=== PATIENT | female | born 1995 | race Caucasian/White ===

== ENCOUNTER 2022-05-29 14:02 | Outpatient (CLI) | payer OTHER, SELFPAY ==
[2022-05-29 21:46] LABS: Chloride* 102 mmol/L (96-114); Sodium* 139 mmol/L (135-149)
[2022-05-29 21:49] LABS: Blood Urea Nitrogen* 18 mg/dL (5-24); Carbon Dioxide* 28 mmol/L (20-32); Creatinine* 0.8 mg/dL (0.5-1.5); Estimated Glomerular Filt Rate 102 ml/min
[2022-05-29 21:50] LABS: Calcium* 9.5 mg/dL (8.4-10.6); Glucose* 76 mg/dL (60-115)
== END 2022-05-29 14:03 | disposition home or self-care (01) ==
PROVIDERS: PCP Emergency Medicine; Visit Provider Emergency Medicine
DX: I10 Essential (primary) hypertension (principal)
CPT/HCPCS: 80048

== ENCOUNTER 2022-06-24 10:08 | Outpatient (CLI) | payer OTHER, SELFPAY ==
[2022-07-02 11:38] LABS: Hours Collected 24 hr; Total Volume 1800 mL; Urine Supersaturation Interp Abnormal; pH, Urine 6.72 (5.00-7.50)
== END 2022-06-24 10:09 | disposition home or self-care (01) ==
LOC: LKVREF 13:16
PROVIDERS: PCP Emergency Medicine; Visit Provider Internal Medicine Nephrology
DX: E83.59 Other disorders of calcium metabolism (principal); I10 Essential (primary) hypertension; N29 Other disorders of kidney and ureter in diseases classified elsewhere
CPT/HCPCS: 82340; 82436; 82507; 83735; 83945; 83986; 84105; 84133; 84300; 84392; 84560

== ENCOUNTER 2024-04-05 17:10 | Outpatient (CLI) | payer OTHER, SELFPAY ==
--- NOTE | 2024-04-05 17:30 | CRLHL7_ITS ---
For Patients: As a result of the Cures Act, medical imaging exams and procedure reports are released immediately into your electronic medical record. You may view this report before your referring provider. If you have questions, please contact your health care provider. INDICATION: First trimester scan, establish dates. COMPARISON: None. TECHNIQUE: Real-time hanson-scale imaging of the pelvis was performed. FINDINGS: Sonographic imaging demonstrates a single living intrauterine gestation. The embryo demonstrates a regular cardiac rate measuring 180 beats per minute. The embryo`s crown-rump length measurement of 2.0 cm corresponds to a gestational age of 8 weeks 4 days with a sonographic due date of 11/11/2024. There is a normal-appearing yolk sac. There are no gross abnormalities noted within the embryo at this early state of development. The gestational sac has a normal appearance. Right-sided subchorionic hemorrhage measures 10 x 17 x 6 millimeters. Left-sided subchorionic hemorrhage measures 17 x 9 x 5 millimeters. The amount of fluid within the sac appears appropriate for gestational age. The cervix is closed. The myometrium appears normal. The ovaries are of normal size. Corpus luteal cyst left ovary. There are no suspicious fluid collections noted in the cul-de-sac. IMPRESSION: Single living intrauterine with sonographic gestational age 8 weeks 4 days and sonographic due date of 11/11/2024. Right-sided subchorionic hemorrhage measures 10 x 17 x 6 millimeters. Left-sided subchorionic hemorrhage measures 17 x 9 x 5 millimeters. Dictated by Jose Mari MD @ 04/06/2024 10:16:01 AM (Electronically Signed)
== END 2024-04-05 17:11 | disposition home or self-care (01) ==
LOC: US 17:12
PROVIDERS: PCP Emergency Medicine; Visit Provider Physician Assistant
DX: Z34.91 Encounter for supervision of normal pregnancy, unspecified, first trimester (principal); O20.9 Hemorrhage in early pregnancy, unspecified; Z3A.08 8 weeks gestation of pregnancy
CPT/HCPCS: 76817; 82565; 82570; 84156; 84450; 84460; 84520; 86703; 86706; 86803; 86850; 86900; 86901; 87086; 87340

== ENCOUNTER 2024-04-05 18:50 | Outpatient (CLI) | payer OTHER, SELFPAY | END 2024-04-05 18:51 | disposition home or self-care (01) | PROVIDERS: PCP Emergency Medicine; Visit Provider Physician Assistant | DX: Z34.91 Encounter for supervision of normal pregnancy, unspecified, first trimester (principal); Z3A.08 8 weeks gestation of pregnancy | CPT/HCPCS: 82565; 82570; 84156; 84450; 84460; 84520; 86592; 86703; 86704; 86706; 86762; 86787; 86803; 86850; 86900; 86901; 87086; 87340 ==

== ENCOUNTER 2024-04-07 09:10 | Outpatient (CLI) | payer OTHER, SELFPAY | END 2024-04-07 09:11 | disposition home or self-care (01) | LOC: NFLDREF 04-10 19:50 | PROVIDERS: PCP Emergency Medicine; Referring Provider Emergency Medicine; Visit Provider Physician Assistant | DX: O16.9 Unspecified maternal hypertension, unspecified trimester (principal); Q61.5 Medullary cystic kidney | CPT/HCPCS: 82570; 84156 ==

== ENCOUNTER 2024-06-17 10:54 | Outpatient (CLI) | payer OTHER, SELFPAY | END 2024-06-17 10:55 | disposition home or self-care (01) | LOC: US 10:55 | PROVIDERS: PCP Emergency Medicine; Visit Provider Obstetrics & Gynecology | DX: O10.912 Unspecified pre-existing hypertension complicating pregnancy, second trimester (principal); Z3A.19 19 weeks gestation of pregnancy | CPT/HCPCS: 76811 ==

== ENCOUNTER 2024-07-14 13:00 | Outpatient (CLI) | payer OTHER, SELFPAY | END 2024-07-14 13:01 | disposition home or self-care (01) | LOC: US 13:01 | PROVIDERS: PCP Emergency Medicine; Visit Provider Obstetrics & Gynecology | DX: O10.912 Unspecified pre-existing hypertension complicating pregnancy, second trimester (principal); Z3A.22 22 weeks gestation of pregnancy | CPT/HCPCS: 76816 ==

== ENCOUNTER 2024-10-21 10:39 | Outpatient (CLI) | payer OTHER, SELFPAY | END 2024-10-21 10:40 | disposition home or self-care (01) | LOC: NFLDREF 10:40 | PROVIDERS: PCP Emergency Medicine; Visit Provider Obstetrics & Gynecology | DX: Z34.83 Encounter for supervision of other normal pregnancy, third trimester (principal) | CPT/HCPCS: 82570; 84156; 87081; 87653 ==

== ENCOUNTER 2024-10-26 14:39 | Outpatient (CLI) | payer OTHER, SELFPAY ==
[2024-10-26 15:05] VITALS: PULSE 94; O2SAT 99
[2024-10-26 15:10] VITALS: PULSE 107; O2SAT 98
[2024-10-26 15:18] VITALS: BP 131/83; PULSE 93; RESP 16; TEMP 37.1
[2024-10-26 16:46] VITALS: BP 129/72; PULSE 81
[2024-10-26 16:50] VITALS: RESP 16; TEMP 36.9
--- NOTE | 2024-10-26 18:28 | PC.OBNST ---
NST Note NST Note Start: 10/26/24 14:40 Freq: ONCE Status: Active Protocol: Document 10/26/24 18:23 MMB (Rec: 10/26/24 18:24 MMB [id number]) NST Note 4 Para (# of births) 3 EDC 11/11/24 Gestational Age In 37 Weeks & 5 Days Weeks & Days High Risk Factors High Blood Pressure - Preexisting Patient Presented Contractions/cramping with Complaint(s) of Reactive Yes Appropriate for Yes Gestational Age BECCA Vaz RN Date 10/26/24 Reactive Yes Appropriate for Yes Gestational Age BECCA Barney RN Date 10/26/24 OB NST charge Yes Complete NST Note Yes via Write Note The provider's electronic signature indicates the NST is reactive/appropriate for gestational age. *Note to provider: If an addendum is required, open the patient's chart and click on the note under the Nurse/Allied Health tab.
== END 2024-10-26 17:20 | disposition home or self-care (01) ==
LOC: OB OUT 14:41 → OB 14:42
PROVIDERS: PCP Emergency Medicine; Visit Provider Obstetrics & Gynecology
DX: O10.913 Unspecified pre-existing hypertension complicating pregnancy, third trimester (principal); Z3A.37 37 weeks gestation of pregnancy
CPT/HCPCS: 59025; G0463

== ENCOUNTER 2024-11-06 12:21 | Outpatient (CLI) | payer OTHER, SELFPAY ==
[2024-11-06 12:35] VITALS: BP 130/78; PULSE 83; PULSE 90; RESP 18; TEMP 36.7; O2SAT 99
[2024-11-06 13:34] VITALS: PULSE 95; O2SAT 98
[2024-11-06 14:42] VITALS: PULSE 106; O2SAT 97
--- NOTE | 2024-11-06 15:39 | PC.OBNST ---
NST Note NST Note Start: 11/06/24 12:26 Freq: ONCE Status: Active Protocol: Document 11/06/24 15:32 OHOGAMIUT (Rec: 11/06/24 15:33 OHOGAMIUT [id number]) NST Note 4 Para (# of births) 3 EDC 11/11/24 Gestational Age In 39 Weeks & 2 Days Weeks & Days High Risk Factors High Blood Pressure - Preexisting Patient Presented Contractions/cramping with Complaint(s) of Reactive Yes Appropriate for Yes Gestational Age BECCA Barney RN Date 11/06/24 Reactive Yes Appropriate for Yes Gestational Age BECCA Tello RN Date 11/06/24 OB NST charge Yes Complete NST Note Yes via Write Note The provider's electronic signature indicates the NST is reactive/appropriate for gestational age. *Note to provider: If an addendum is required, open the patient's chart and click on the note under the Nurse/Allied Health tab.
== END 2024-11-06 15:40 | disposition home or self-care (01) ==
LOC: OB OUT 12:22 → OB 12:24
PROVIDERS: PCP Emergency Medicine; Visit Provider Obstetrics & Gynecology
DX: O10.913 Unspecified pre-existing hypertension complicating pregnancy, third trimester (principal); O47.1 False labor at or after 37 completed weeks of gestation; Z3A.39 39 weeks gestation of pregnancy
CPT/HCPCS: 59025; G0463

== ENCOUNTER 2024-11-09 01:41 | Inpatient (IN) | payer OTHER, SELFPAY ==
[2024-11-09] VITALS (39 sets, daily range): BP systolic 111–164; BP diastolic 54–92; PULSE 70–107; RESP 16–18; TEMP 36.7–36.9; O2SAT 92–100
--- NOTE | 2024-11-09 01:48 | W.PM.LDBA ---
Subjective History of Present Illness Time Seen by Provider: 01:00 Date Seen: 11/09/24 Narrative: Patient is being admitted to Labor and Delivery for spontaneous labor. She is a 29 year old at 39.5 weeks gestation. Her full history and physical was dictated by Dr. Sow on 10/22. Please see this for details. She has limited care. Has chronic HTN but has declined all surveillance and previous IOL. SVE on admission: /-2, soft, anterior. Gordon every two minutes painfully. Specific Issues/Plans Partner: Ward. H&P: 10/22 Dr. Sow #Limited care Missed OB appointments from 20 weeks to 32 weeks, again from 32 through 37 weeks # Declined 1 hr GTT. HbA1c normal on 10/21/24. #Chronic hypertension, she was on amlodipine and hydrochlorothiazide discontinued with positive test. Gestational hypertension with her last : Delivery records reviewed state that patient received magnesium sulfate prophylaxis* no other evidence of diagnosis upon records received... Had elevated BP at 6 week pp visit-consistent with CHTN Baseline pre E labs:Normal, including normal 24 hour urine protein Aspirin 81 mg Level 2 US ordered Declines serial ultrasounds for growth # history of kidney stones; none this # migraine with aura # Medullary sponge kidney, overdue for f/u with nephrology Nephrology referral placed, patient declines. # history of macrosomia, 2nd , 9 lb 1 oz. Patient declined gonorrhea and chlamydia screening Imaging: Level 2: 06/02/24: We reviewed that the visualized anatomy appeared within normal limits although some portions of the anatomy were suboptimally seen as noted above. We did discuss that a perimembranous VSD was initially suspected in some cardiac views, but this finding could not be reproduced and therefore follow up is recommended. Recommend a repeat US in 4 weeks at [facility] in [place] to re-evaluate growth and anatomy, including anatomy that was suboptimally seen today. Once the anatomy has been adequately visualized, given chronic hypertension, recommend serial growth US every 4 weeks starting at 28 weeks, which I anticipate will be scheduled through [facility]. surveillance is not indicated if BP continues to be well controlled on no medications with goal SBP < 140 and DBP < 90. 07/14/24: FU [facility] US:Pedersen intrauterine at 22w 6d gestational age.None of the anomalies commonly detected by ultrasound were evident in the anatomic survey described above.Growth parameters and estimated weight were consistent with appropriate for gestational age pattern of growth.The amniotic fluid volume appeared normal.Recommendation: We reviewed that the anatomy that was suboptimally seen at the prior US appeared within normal limits today. Specifically, the cardiac anatomy was visualized and a VSD was not suspected on today's US. Given chronic hypertension, recommend serial growth US every 4 weeks starting at 28 weeks, which I anticipate will be scheduled through [facility]. surveillance is not indicated if BP continues to be well controlled on no medications with goal SBP < 140 and DBP < 90. Covid: Declined Flu: Declined Tdap: Declined RSV: N/A Last pap: 2020? OB - Problem Based A/P Additional Plan (1) : Status: Acute (2) Chronic hypertension: Status: Acute Plan - Patient in spontaneous labor - GBS negative - Requesting epidural. Anesthesia notified. OB Exam Physical Exam Vital signs: Temp Pulse Resp BP 98.5 F 90 18 127/86 11/09/24 00:16 11/09/24 00:16 11/09/24 00:16 11/09/24 00:16 Narrative: Physical exam: General: Vocal and breathing through contractions. Asking for epidural Psych: Alert and oriented x3, full affect HEENT: Normocephalic, atraumatic Lungs: Unlabored breathing in between contractions Neuro: No focal deficit. Mentating appropriately Pelvic exam: SVE dry perineum. membrane palpated and intact. 2/75/-2, soft, anterior
[2024-11-09] MEDS: LACTATED RINGERS 1000 ML 1,000 ML 1125 ML IV (01:50)
[2024-11-09] MEDS: BUPIVACAINE 0.25% PF 10 ML 10 ML ML EPIDURAL (02:39)
[2024-11-09] MEDS: ROPIVACAINE 0.2% 100 ml 100 ML 12 MG EPIDURAL (02:39)
[2024-11-09] MEDS: LACTATED RINGERS 1000 ML 1,000 ML 125 ML IV (02:45)
--- NOTE | 2024-11-09 02:46 | PM.ANBPRC ---
[facility] Medical History Amenorrhea ?N91.2 - Amenorrhea, unspecified (ICD-10) Herpes simplex ?B00.9 - Herpesviral infection, unspecified (ICD-10) Migraine with aura ?G43.109 - Migraine with aura, not intractable, without status migrainosus (ICD-10) Environmental allergies ?Z91.09 - Other allergy status, other than to drugs and biological substances (ICD-10) Surgical History Status post wisdom tooth extraction ?Z98.818 - Other dental procedure status (ICD-10) H/O lithotripsy ?Z98.890 - Other specified postprocedural states (ICD-10) Family History (Updated 10/21/24 @ 10:27 by Jesika Sow MD) Other Breast cancer Heart disease Social History (Updated 10/21/24 @ 10:28 by Jesika Sow MD) Narrative: Lives in [place] with and 3 kids. Works at [employer]. SOCIAL HISTORY: Occupation: Domestic biomedical engineering technologist. Marital status: . Christianity/cultural needs: She indicated yes, will need to clarify at next visit. Chemical or radiation exposure: no. Pre- tobacco use: no. Pre- alcohol use: no. Current tobacco use: no. Current alcohol use: no. Recreational drug use: no. Dietary restrictions: no. Blood transfusion acceptable in an emergency: yes. PSYCHOSOCIAL HISTORY: History of depression or currently depressed: no. Current or past physical, emotional, or sexual mistreatment: no. Problems that will make it hard to make it to appointments: no. What is your current living situation?: I presently have a place to live Problems where you live: no known problems In the past 12 months, utilities in danger of being shut off: no In past 12 months, lack of transportation kept you from medical appts, meetings, work, or getting things needed for daily living: no In the past 12 mos, have been you worried that your food would run out before you had money to buy more?: never true In the past 12 mos, the food you bought just didn't last and you didn't have money to buy more?: never true Smoking Status: Never smoker How often does anyone, including family, friends and others, physically hurt you: never How often does anyone, including family, friends and others, insult or talk down to you: never How often does anyone, including family, friends and others, threaten you with harm: never How often does anyone, including family, friends and others, scream or curse at you: never Meds Home Medications and Allergies Home Medications ?Medication ?Instructions ?Recorded ?Confirmed ?Type [id number] 3 fatty no.1 27 1 cap PO DAILY 04/05/24 11/09/24 History mg-1 mg-300 mg capsule aspirin 81 mg capsule 81 mg PO QDAY 06/24/24 11/09/24 History Allergies Allergy/AdvReac Type Severity Reaction Status Date / Time dexamethasone (From Decadron) Allergy Intermediate hives Verified 10/26/24 15:14 ketorolac (From Toradol) Allergy Intermediate Hives Verified 10/26/24 15:14 latex Allergy Intermediate Unknown Verified 10/26/24 15:14 Results Vital Signs Vital Signs: Last Vital Signs Temp 98.5 F 11/09/24 00:16 Pulse 92 11/09/24 02:43 Resp 18 11/09/24 00:16 BP 164/72 H 11/09/24 02:43 Pulse Ox 97 11/09/24 02:42 Anesthesia Procedures Epidural Insertion Patient Location: OB Start Time: 02:00 Stop Time: 03:00 Start Date: 11/09/24 Stop Date: 11/09/24 Reason for Block: procedure for pain Patient Position: sitting Performed By: Juan Kerr Preanesthetic Checklist: IV checked, risks and benefits discussed, surgical consent, monitors and equipment checked, pre-op evaluation, timeout performed and anesthesia consent Prep: chlorhexidine gluconate Monitoring: blood pressure monitoring, continuous pulse oximetry and heart rate Approach: midline Vertebral Space: lumbar (1-5) Epidural Technique: JIE saline Needle Type: Tuohy needle Injection Technique: continuous catheter Needle gauge: 17 Needle Length (cm): 10 cm Needle Insertion Depth (cm): 6 Catheter Gauge: 19 Catheter Type: multi-orifice Catheter at skin depth (cm): 12 Test Dose Result: negative and lidocaine 1.5% with epinephrine 1 to 200,000
[2024-11-09] MEDS: PHENYLEPHRINE 100 MCG/ML SYRINGE IVP (03:11)
[2024-11-09] MEDS: OXYTOCIN 30 unit/500 ML in NS 30 UNIT/500 ML BAG 300 UNIT IVPB (03:42)
--- NOTE | 2024-11-09 03:53 | W.PM.VAGDEL1 ---
Procedure Delivery date: 11/09/24 Procedure Done: Global Events: Chronic Hypertension Narrative: The patient is a 29 year-old G4 P 3-0 0 3 admitted on November 09 2024 at 39 and 5/7 weeks gestation for spontaneous labor. GBS negative Labor Analgesia: Epidural Pitocin: Only for active management of 3rd stage. SROM: 11/09/24 at 0323, with clear fluid Complete: 11/09/24 at 0336 Pushin11/09/24 at 0336 heart tones during second stage were cat II with small variables that spontaneously resolved. At 0341 a viable female infant delivered in vertex OA presentation over intact via spontaneous vaginal delivery. The 's body was delivered in the usual manner without difficulty. The was placed on maternal abdomen. The cord was clamped and cut after a 30-60 second delay. The nose and mouth were bulb suctioned. Infant weight: pending. 7 at 1 minute and 8 at 5 minutes. Shoulder dystocia: No. Nuchal cord: No Placenta delivered spontaneously and complete at 0345 with a 3-vessel cord. Placenta examined and noted to be complete. Placenta was sent to pathology for chronic hypertension. The cervix and vagina were inspected for lacerations, and none were noted. Laceration(s): None Complications: None Quantitative blood loss: 100 cc Cord gases: not indicated Sponge and needles counts are correct. Mother and infant were stable at the time of this note.
[2024-11-09 05:12] LABS: Hematocrit 36.7 % (33.0-51.0); Hemoglobin* 11.9 gm/dL (12.0-16.0); Mean Corpuscular HGB Conc 32 gm/dL (32-36); Mean Corpuscular Hemoglobin 28 pg (26-34); Mean Corpuscular Volume 86 fL (80-100); Platelet Count* 211 K/uL (140-440); Red Blood Count 4.28 m/uL (4.00-5.20); White Blood Count* 16.34 K/uL (4.50-11.00)
[2024-11-09 05:13] LABS: Slide Review Reflex No
[2024-11-09 05:28] LABS: Alanine Aminotransferase* 23 U/L (4-35); Aspartate Amino Transferase* 51 U/L (12-35); Creatinine* 0.6 mg/dL (0.5-1.5); Estimated Glomerular Filt Rate 123 ml/min
[2024-11-09 07:33] LABS: Total Protein Urine 14 mg/dL
[2024-11-09 07:34] LABS: Creatinine Urine 49.6 mg/dL; Protein Creatinine Ratio Urine 0.28 (0-0.19)
[2024-11-09] MEDS: DOCUSATE SODIUM 100 MG CAPSULE PO (08:18)
[2024-11-09] MEDS: IBUPROFEN 600 MG TABLET PO ×3 (08:19→20:27)
[2024-11-09] MEDS: ACETAMINOPHEN 500 MG TABLET 1000 MG PO ×2 (11:01→17:35)
--- NOTE | 2024-11-09 12:23 | PM.ANPOST ---
Post Anesthesia Note Post Anesthesia Note Patient seen: Inpatient Respiratory Status: adequate Cardiovascular Status: adequate Mental Status: baseline Pain: adequate Temp: baseline Anesthetic awareness: N/A Complications: none Follow care: none
[2024-11-10 00:56] VITALS: BP 115/79; PULSE 89; RESP 16; TEMP 36.6; O2SAT 96
[2024-11-10] MEDS: ACETAMINOPHEN 500 MG TABLET 1000 MG PO (01:36)
[2024-11-10 04:12] VITALS: BP 115/75; PULSE 89; RESP 18; TEMP 36.4; O2SAT 96
[2024-11-10 06:44] LABS: Hemoglobin* 12.2 gm/dL (12.0-16.0)
[2024-11-10] MEDS: IBUPROFEN 600 MG TABLET PO (08:20)
[2024-11-10 08:25] VITALS: BP 108/73; PULSE 86; RESP 16; TEMP 36.6; O2SAT 96
--- NOTE | 2024-11-10 09:04 | P.DS_ITS ---
DS: Providers Provider Date Seen: 11/10/24 Date of admission: 11/09/24 01:41 Primary care physician: Karen Molina Admitting Clinician: Norma Eason MD Attending Physician on discharge: Norma Eason MD DS: Diagnosis Discharge Diagnosis (1) Lactating mother: Status: Acute (2) care following vaginal delivery: Status: Acute (3) Chronic hypertension: Status: Acute (4) Medullary sponge kidney: Status: Acute Exam Narrative: Exam Narrative: GENERAL APPEARANCE:? normal affect, alert, no distress? MOOD:? appropriate? CHEST:? clear to auscultation and percussion? HEART:? regular rate and rhythm? ABDOMEN:? soft, non-tender the uterine fundus is U/2 and is appropriate for the stage of recovery.? PERINEUM:? mild edema of the perineum, there is a intact perineum that is healing well.? EXTREMITIES:? normal and no edema? Const: Vital Signs, click to edit/add: Vital Signs - 24 hr 11/09/24 09:27 11/09/24 11:35 11/09/24 16:15 Temperature 98.3 F 98.5 F 98.0 F Pulse Rate [Pulse Oximeter] 83 78 86 Respiratory Rate 16 16 16 Blood Pressure [Ri ght Arm] 121/81 134/79 123/84 Pulse Oximetry 96 96 96 Oxygen Delivery Me thod Room Air Room Air Room Air 11/09/24 20:00 11/10/24 00:56 11/10/24 04:12 Temperature 98.2 F 97.9 F 97.6 F Pulse Rate [Pulse Oximeter] 87 89 89 Respiratory Rate 18 16 18 Blood Pressure [Ri ght Arm] 116/76 115/79 115/75 Pulse Oximetry 96 96 96 Oxygen Delivery Me thod Room Air Room Air Room Air 11/10/24 08:25 Temperature Pulse Rate [Pulse Oximeter] 86 Respiratory Rate 16 Blood Pressure [Ri ght Arm] 108/73 Pulse Oximetry 96 Oxygen Delivery Me thod Room Air Documenting provider has reviewed patient's vital signs: yes OB - DS: Summary Hospital Course Hospital Course: Susan is a 29 y.o. G 4 P 4 who was admitted to [facility] & [facility] for spontaneous labor. ?She had a NVD that was uncomplicated. The patient feels well. ?The pain is well controlled with current medications. ?She has no new complaints. ?She is breast feeding and reports things are going well. the patient has done well.? Vitals have been stable.? She has remained afebrile.? Has a good appetite, is tolerating a general diet. ?She is voiding without difficulty.? She is passing gas and has not had a bowel movement.? She is ambulating and denies any dizziness.? Has small amount of rubra lochia. She is not planning anything for prevention as her partner had intervention to increase his sperm to achieve this . Discussed considering if indications or condition change indicating need for contraception. She will continue to check her blood pressures BID at home and is aware of readings to report as well a symptoms. She does have a Toradol allergy listed. She has had ibuprofen in the past as well as with this hospitalization without reactions. She confirmed that when she had Toradol it was in combination with another medication and it is unclear which caused the hives reaction. Peripartum Data Infant delivery method: Vaginal Laceration description: None Episiotomy description: None complications: none [place] Gender: Female Discharge Plan: Home Status at Discharge Functional status at discharge: independent ambulation Overall status at discharge: patient is progressing back to baseline Time Spent with Patient Time attestation: Total time spent providing and/or coordinating discharge services: Discharge Plan Discharge Disposition: Home, Self-Care Date of Admission: 11/09/24 01:41 Attending Provider on Discharge: Moriah Caal Primary Care Provider: Karen Molina Condition: Stable Anticipated Discharge Date/Time: 11/10/24 11:00 Discharge Medications: New docusate sodium 100 mg Capsule 100 mg PO DAILY Qty: 120 0RF Rx Instructions: Take 1-2 tablets daily as needed for constipation. ibuprofen 600 mg Tablet 600 mg PO Q6H PRNQty: 60 0RF Continued QMH-biww-RW-omega 3 fatty no.1 27-1-300 mg capsule 1 cap PO DAILY Discontinued aspirin 81 mg capsule 81 mg PO QDAY Discharge Orders: Discharge Order (Routine); Ordered 11/10/24 Ordered By: Moriah Caal Patient Education: OB Vaginal/Breast Feeding Additional Instructions: Discharge instructions were reviewed with the patient including signs and symptoms of infection and home going medications.? Lifting Restrictions: 20 pounds for 6? weeks? ?? Do not drive while taking narcotic pain meds.? Off Work or School for 6 weeks.? ?? Symptoms to report to doctor:? -Bleeding that saturates more than one pad per hour? -Passing clots larger than the size of a golf ball? -Pain not relieved by prescribed medication? -Fever above 100.4 degrees Fahrenheit? -A foul vaginal odor? -Difficulty in emotions, mood and functions? -Thoughts of hurting yourself and/or ? -Painful, reddened area in your breast? -Any drainage, redness or tenderness in your IV/epidural site? -Severe headache that doesn't improve after taking medications? -Changes in vision, including temporary loss of vision, blurred vision, and/or light sensitivity? -Upper abdominal pain (usually under ribs on the right side)? -Decrease in urination or painful, frequent urinating? -Chest pain? -Shortness of breath? -Tenderness or pain with redness and/swelling in the calf(s) of your leg? ?? Follow Up in clinic in 2 and 6 weeks.? ?? consultation services are available to all mothers and babies for the first year after delivery.? To make an appointment, please call [phone].? Activity Level: Activity as Tolerated Discharge Diet: Regular Follow Up Appointments: [facility] [Provider Group] Forms: [facility] Info Instructions
[2024-11-10 15:16] LABS: Rapid Plasma Reagin (RPR) Non Reactive (Non Reactive)
== END 2024-11-10 11:55 | disposition home or self-care (01) | DRG 806 ==
LOC: OB OUT 01:42 → OB 01:42
PROVIDERS: Admitting Provider Obstetrics & Gynecology; PCP Emergency Medicine; Visit Provider Obstetrics & Gynecology
DX: O10.92 Unspecified pre-existing hypertension complicating childbirth (principal); Q61.5 Medullary cystic kidney; Z37.0 Single live birth; Z3A.39 39 weeks gestation of pregnancy
CPT/HCPCS: 01967; 36415; 51798; 82565; 82570; 84156; 84450; 84460; 85018; 85027; 86592; 88307; G0463; A9270; J0665; J2795; J7120